=== PATIENT | female | born 1960 | race Caucasian/White ===

== ENCOUNTER 2016-12-28 14:34 | Emergency (ER) | payer OTHER ==
[~2016-12-28] VITALS: Ht 185.4 cm; Wt 72.5 kg
[~2016-12-28 14:34] MED LIST: DULO60CA44 PO
[2016-12-28 14:44] VITALS: Ht 185.4 cm; Wt 72.5 kg
--- NOTE | 2016-12-28 15:34 | DIAGNOSTIC IMAGING REPORT ---
R WRIST W/NAVICULAR MIN 3 VIEWS CLINICAL HISTORY: Right distal ulna pain status post trauma COMPARISON: None. DISCUSSION: No acute fractures are visualized. There are no erosive or destructive changes. There are minor degenerative changes at the level of the first carpometacarpal joint. IMPRESSION: Minor degenerative change. No fractures. No evidence of erosive disease. Electronically signed by: Amandeep Pereira M.D. 12/28/2016 3:32 PM Dictated Date/Time: 12/28/2016 3:31 PM
--- NOTE | 2016-12-28 15:47 | EMERGENCY ROOM VISIT NOTE ---
History First contact with patient: 15:02 Chief Complaint: WRIST PAIN Stated Complaint: RT WRIST PAIN History of Present Illness The patient is a 56 year old female who presents to the Emergency Room via private vehicle with complaints of "right wrist pain". The patient states that she was working on her go-cart yesterday, when she was operating a wrench that broke free, causing her wrist to bend with force. She states that she has had pain in the right wrist since then, but has been wearing a Velcro wrist lacer that she had from previous injury. She notes that she has broken and twisted the wrist in the past. She points to the distal ulnar region of the right wrist as a location of pain that she currently rates as a 5/10. She states she is broken bones before, and this feels similar, but not as bad. She is right- handed. Review of Systems A complete 6-point Review of Systems was discussed with the patient, with pertinent positives and negatives listed in the History of Present Illness. All remaining Review of Systems questions can be considered negative unless otherwise specified. Past Medical/Surgical History Medical Problems: (1) ANXIETY STATE NOS (2) ASTHMA W/O STATUS ASTH, ACT EXACERBATION OR UNSPEC (3) ATRIAL FIBRILLATION (4) CHRONIC PAIN SYNDROME (5) GENERALIZED PAIN (6) IDIO PERIPH NEURPTHY NOS (7) ITP (idiopathic thrombocytopenic purpura) (8) OPIOID DEPENDENCE-UNSPEC (9) PERSONAL HX OF TIA,& CEREBRAL INFARCTION W/OUT RES DEFICITS (10) THROMBOCYTOPENIA NOS Family History No pertinent family history Social History Smoking Status: Current Every Day Smoker Alcohol Use: none Drug Use: none Marital Status: single Housing Status: lives alone Occupation Status: unemployed Current/Historical Medications Scheduled Duloxetine Hcl (Cymbalta), 60 MG PO DAILY Estrogens, Conjugated (Premarin), 0.625 MG PO BID Gabapentin (Neurontin), 300 MG PO BID Morphine Sulfate (Morphine Sulfate Er), 60 MG PO Q8 Scheduled PRN Cyclobenzaprine Hcl (Flexeril), 10 MG PO BID PRN for Muscle Spasm Hydrocodone/Acetaminophen 10MG/325MG ([place] 10MG/325MG), 1 TABLET PO QID PRN for Pain Lorazepam (Ativan), 1 MG PO Q12 PRN for Shakes Physical Exam Vital Signs Date Time Temp Pulse Resp B/P (MAP) Pulse Ox O2 Delivery O2 Flow Rate FiO2 9/21/17 15:54 36.9 92 16 122/69 98 12/28/16 14:44 36.9 92 16 122/69 98 Room Air Physical Exam VITAL SIGNS - Vital signs and nursing notes were reviewed. Stable. GENERAL -56-year-old female appearing her stated age who is in no acute distress. Communicates well with provider and answers questions appropriately. SKIN - Without rashes. Slight erythema overlying the distal right ulnar region. No breaks in the integument. There is some edema in this region. EXTREMITIES - No clubbing or peripheral cyanosis. No pretibial edema present. She is neurovascularly intact in the right upper extremity. Near full range of motion of this region. Tenderness overlying the medial aspect of the right wrist. +5/5 strength noted in UE/LE bilaterally. Medical Decision & Procedures ER Provider Diagnostic Interpretation: R WRIST W/NAVICULAR MIN 3 VIEWS CLINICAL HISTORY: Right distal ulna pain status post trauma COMPARISON: None. DISCUSSION: No acute fractures are visualized. There are no erosive or destructive changes. There are minor degenerative changes at the level of the first carpometacarpal joint. IMPRESSION: Minor degenerative change. No fractures. No evidence of erosive disease. Electronically signed by: Amandeep Pereira M.D. 12/28/2016 3:32 PM Dictated Date/Time: 12/28/2016 3:31 PM Medical Decision Patient was seen and evaluated as above. She presents to us today status post injury of the right wrist. She is already splinted in a nice wrist lacer. Radiographs of the right wrist were obtained. Results as above. No acute fracture. I suspect sprain. She was offered another splint, but the one she is wearing is very sufficient. She declined respectfully and other splint. She is to follow up orthopedics regarding her injury. She was educated upon management, educated upon worrisome symptoms which to return, had questions answered prior to discharge, and was discharged home in good condition. In the evaluation and treatment of this patient, the following differential diagnoses were considered: Wrist Sprain, Wrist Fracture, Wrist Dislocation, Scapholunate Dissociation, Carpal Fracture, Metacarpal Fracture, Radial Styloid Process Fracture, Ulnar Styloid Process Fracture, or Carpal Tunnel Syndrome. Impression Primary Impression: Wrist pain, right Departure Information Dispostion Home / Self-Care Condition GOOD Referrals Pro,Lisa HensonD. (PCP) Chavo Cordova M.D. Patient Instructions My [facility] Additional Instructions You have been treated in the Emergency Department for Wrist Pain. For pain control, you can use the following [id number] medicines if not allergic or restricted based on medications already taking: - Regular strength (325mg/tab) Tylenol (acetaminophen) 2 tabs every 4-6 hours as needed. Do not exceed 12 tablets in a 24 hour period. Avoid taking more than 3 grams (3000 mg) of Tylenol per day. This includes any other sources of acetaminophen you may take on a regular basis. If this is a recent injury (<24 hrs), ice can be applied to the area of pain for the first 3 days to help decrease pain and inflammation. You have been provided the number for an Orthopaedic Surgeon. You should call this number as soon as possible to establish a follow-up visit from today's Emergency Department visit. Keep the brace/splint in place until evaluated by Orthopedics. Return to the Emergency Department if your current symptoms worsen despite treatment course outlined above, or if you develop any of the following symptoms : intractable pain despite aforementioned treatment course or new onset of numbness or tingling of the fingers.
[2016-12-28 15:54] VITALS: BP 122/69; PULSE 92; TEMP 36.9; O2SAT 98
[2016-12-28] MEDS ORDERED: CYCL10TA6 PO (18:46)
[2016-12-28] MEDS ORDERED: MORP1TAB13 PO (18:46)
[2016-12-28] MEDS ORDERED: HYDR-4079 PO (20:02)
[2016-12-28] MEDS ORDERED: PRM625 PO (20:02)
[2016-12-28] MEDS ORDERED: GABA-113 PO (20:02)
[2016-12-28] MEDS ORDERED: ATV/1 PO (20:55)
== END 2016-12-28 15:55 | disposition home or self-care (01) ==
LOC: C.EDB 14:38 → C.EDD 15:55
DX: S69.91XA Unspecified injury of right wrist, hand and finger(s), initial encounter (principal); Y93.89 Activity, other specified; X50.0XXA Overexertion from strenuous movement or load, initial encounter; F41.9 Anxiety disorder, unspecified; J45.909 Unspecified asthma, uncomplicated; I48.91 Unspecified atrial fibrillation; G89.4 Chronic pain syndrome; G60.9 Hereditary and idiopathic neuropathy, unspecified; D69.3 Immune thrombocytopenic purpura; Z86.73 Personal history of transient ischemic attack (TIA), and cerebral infarction without residual deficits; F17.210 Nicotine dependence, cigarettes, uncomplicated; Z79.899 Other long term (current) drug therapy

== ENCOUNTER → 2017-03-05 | Outpatient (CLI) | payer OTHER ==
[~2017-03-05] MED LIST changes: +ATV/1 PO; +CYCL10TA6 PO; +GABA-113 PO; +HYDR-4079 PO; +MORP1TAB13 PO; +PRM625 PO
--- NOTE | 2017-03-05 09:50 | DIAGNOSTIC IMAGING REPORT ---
ABDOMEN COMPLETE (US) CLINICAL HISTORY: 56 years-old Female with IMMUNE THROMBOCYTOPENIA. Prior cholecystectomy COMPARISON: CT abdomen and pelvis 03/12/2014 TECHNIQUE: Multiple real time sonographic images of the abdomen were obtained assessing bustillos-scale appearance. FINDINGS: PANCREAS: The pancreas is partially obscured by bowel gas. The visualized portions of the pancreas are normal without focal lesion or pancreatic duct dilatation.Pancreatic duct measures in the upper limits of normal at 3 mm, nonspecific. LIVER: The liver demonstrates mildly increased echogenicity suggesting fatty infiltration. There is no intrahepatic bile duct dilation, focal lesion, or contour nodularity. There is no ascites. GALLBLADDER: The gallbladder is surgically absent. Negative sonographic Rasmussen's sign. The common bile duct measures 0.4 cm. RIGHT KIDNEY: The right kidney measures 10.8 x 3.9 x 4.9 cm. The parenchymal echotexture and cortical thickness are normal. No nephrolithiasis or hydronephrosis. LEFT KIDNEY: The left kidney measures 11.0 x 4.8 x 5.4 cm. The parenchymal echotexture and cortical thickness are normal. No nephrolithiasis or hydronephrosis. SPLEEN: The spleen measures 12.4 cm and is normal in echotexture. No focal lesions are identified. VASCULATURE: The visualized aorta and inferior vena cava are sub-visualized although appear normal as seen. IMPRESSION: 1. Prior cholecystectomy. No biliary ductal dilation. 2. Remainder of the study is within normal limits. No splenomegaly. The above report was generated using voice recognition software. It may contain grammatical, syntax or spelling errors. Electronically signed by: Ambrose Whitehead M.D. 03/05/2017 9:49 AM Dictated Date/Time: 03/05/2017 9:45 AM
== END | disposition home or self-care (01) ==
LOC: C.ULTR 09:04
PROVIDERS: ATTEND Nurse Practitioner Family
DX: D69.3 Immune thrombocytopenic purpura (principal)

== ENCOUNTER → 2017-11-08 | Outpatient (CLI) | payer OTHER ==
[~2017-11-08] MED LIST changes: +AZIT-57 PO; +CHOL2000 PO; +ERGO500037 PO; +FOLI800T PO; +NUTR-25 PO; +TIOT1SPR INH
== END | disposition home or self-care (01) ==
LOC: C.LAB1850 14:31
PROVIDERS: ATTEND Physician Assistant
DX: G89.4 Chronic pain syndrome (principal)

== ENCOUNTER 2022-09-05 18:40 | Inpatient (IN) ==
--- NOTE | 2022-09-05 18:59 | ED Triage Note ---
Date of Service September 05, 2022 History of Present Illness This patient was briefly evaluated while in triage. An abbreviated physical exam was performed. This patient is a 61-year-old transgender female who presents to the ED for evaluation of shortness of breath, chest pain, fatigue, body aches, back pain a nd low blood platelets due to multiple melanoma and ITP (last treatment 3 weeks ago). Goes to Dr. Gutierrez through [facility] for treatment. Has had progressively worsening symptoms over the past couple of days. Physical Exam GENERAL: Non-toxic and in no acute distress. HEENT: Pupils equal. No obvious scleral icterus. SKIN: Multiple areas of ecchymosis and petechiae present. HEART: Regular rate and rhythm. LUNGS: Clear to auscultation. No accessory muscle use. MUSCULOSKELETAL: Tender to palpation over the lumbar spine mainly over L2-L3 as well as bilateral paraspinal muscle tenderness. Full range of motion of the bilateral lower extremities. Normal sensation to light and sharp touch of the bilateral lower extremities. NEURO: Alert and oriented. No obvious neurological deficits on quick neuro exam. Initial orders for labs and / or imaging were placed and patient was placed in the waiting area until a bed is available. Please see further documentation for the full ED course.
[2022-09-05 20:42] LABS: Alanine Aminotransferase 21 U/L (7-52); Albumin Globulin Ratio 0.7 (0.9-2); Albumin Level 3.5 gm/dl (3.4-5.0); Alkaline Phosphatase 80 U/L (34-104); Anion Gap 7 (3-11); Aspartate Aminotransferase 17 U/L (13-39); Bilirubin,Total 0.8 mg/dl (0.2-1.0); Blood Urea Nitrogen 9 mg/dl (6-23); Calcium 8.5 mg/dl (8.6-10.3); Carbon Dioxide 27 mmol/L (21-32); Chloride 103 mmol/L (98-107); Est GFR (African American) 110.4 ml/min; Est GFR (Non-African American) 95.3 ml/min; Globulin 5.1 gm/dl (2.5-4.0); Glucose 108 mg/dl (70-99(Fasting)); Hematocrit (blood only) 33.2 % (37.0-47.0); Hemoglobin 11.2 g/dl (12.0-16.0); Lipase 13 U/L (11-82); Mean Corpuscular Hemoglobin 32.8 pg (25.0-34.0); Mean Corpuscular Hgb Conc 33.7 g/dL (32.0-36.0); Mean Corpuscular Volume 97.4 fL (80.0-100.0); Platelet Count 4 K/uL (130-400); Potassium 3.7 mmol/L (3.5-5.1); RDW Coefficient of Variation 13.8 % (11.5-14.5); RDW Standard Deviation 49.4 fL (36.4-46.3); Red Blood Count 3.41 M/uL (4.20-5.40); Sodium 137 mmol/L (136-145); Total Protein 8.6 gm/dl (6.0-8.3); White Blood Count 5.37 K/ul (4.8-10.8)
[2022-09-05 20:48] LABS: Troponin I High Sensitivity 2.5 pg/ml (0-14)
[2022-09-05 20:52] LABS: Partial Thromboplastin Ratio 0.7; Partial Thromboplastin Time 20.9 Seconds (21.0-31.0); Prothrombin Time 10.5 Seconds (9.0-12.0)
[2022-09-05 20:57] LABS: Basophils # (auto) 0.02 K/uL (0-0.2); Basophils % (auto) 0.4 %; Eosinophils # (auto) 0.17 K/uL (0-0.50); Eosinophils % (auto) 3.2 %; Immature Granulocytes # (auto) 0.01 K/uL (0.01-0.20); Immature Granulocytes % (auto) 0.2 %; Lymphocytes # (auto) 1.54 K/uL (1.2-3.4); Lymphocytes % (auto) 28.7 %; Monocytes # (auto) 0.34 K/uL (0.11-0.59); Monocytes % (auto) 6.3 %; Neutrophils # (auto) 3.29 K/uL (1.40-6.50); Neutrophils % (auto) 61.2 %
[2022-09-05 21:14] LABS: Influenza A virus by PCR Negative (Neg); Influenza B virus by PCR Negative (Neg); RSV by PCR Negative (Neg); SARS CoV2 RNA(COVID-19) Ceph NEGATIVE (Negative)
[2022-09-05] MEDS ORDERED: HYDROmorphone INJ 0.5 MG/0.5 ML SYR IV STA (22:46)
[2022-09-05] MEDS ORDERED: ONDANSETRON INJ 2 MG/ML 2 ML VIAL IV STA (22:46)
[2022-09-05] MEDS ORDERED: SODIUM CHLORIDE 0.9% 1000ML 1,000 ML IV SCH (23:00)
--- NOTE | 2022-09-05 23:32 | CT Scan Report ---
Exam(s): CT L SPINE EXAM: CT Lumbar Spine Without Intravenous Contrast CLINICAL HISTORY: Reason for exam: Back pain. TECHNIQUE: Axial computed tomography images of the lumbar spine without intravenous contrast. Automated exposure control was utilized for the study. A dose lowering technique was utilized adhering to the principles of ALARA. COMPARISON: CT abdomen and pelvis 05/13/2021. PET/CT 09/04/2018. FINDINGS: Vertebrae: Chronic bilateral pars defects of L5 with minimal grade 1 spondylolisthesis of L5 on S1. There is associated severe right and moderate left foraminal narrowing. No acute fracture. Discs/spinal canal/neural foramina: Mild degenerative disc disease and facet arthrosis seen in the lumbar spine. No high-grade spinal canal stenosis. Right central/subarticular disc protrusion at L3-L4. Soft tissues: Unremarkable. Vasculature: Atherosclerotic calcification in the abdominal aorta and branches. IMPRESSION: 1. No acute fracture or traumatic malalignment of the lumbar spine. 2. Chronic pars defects of L5 with grade 1 spondylolisthesis of L5 on S1 and associated degenerative change resulting in severe right and moderate left foraminal narrowing at L5-S1. 3. Right central/subarticular disc protrusion at L3-L4. Recommend correlation for symptoms. Consider evaluation with MRI. 4. Otherwise, mild degenerative change in the lumbar spine. Electronically signed by: Yehuda March MD 09/05/22 23:31 PM
[2022-09-06 00:05] LABS: Magnesium 1.9 mg/dl (1.7-2.4)
[2022-09-06] MEDS ORDERED: MAGNESIUM SULFATE / D5W 1 GM/100 ML BAG IV STA (00:27)
[2022-09-06 00:59] LABS: Lyme Ab IgG w/WB Rflx Negative (Negative); Lyme Ab IgM w/WB Rflx Negative (Negative)
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
[2022-09-06] MEDS ORDERED: KETOROLAC TROMETHAMINE 15 MG/ML VIAL IV STA (01:28)
[2022-09-06] MEDS ORDERED: LORazepam 0.5 MG TAB PO PRN (01:33)
[2022-09-06] MEDS ORDERED: PROMETHAZINE HCL 6.25 MG in SODIUM CHLORIDE 0.9% 50 ML IV PRN (01:33)
[2022-09-06] MEDS ORDERED: ACETAMINOPHEN 325 MG TAB PO PRN (01:34)
[2022-09-06] MEDS ORDERED: NICOTINE 21 MG/24 HR TDSY TD STA (01:35)
[2022-09-06] MEDS ORDERED: BETAMETHASONE DIP AUG (DIPROLENE) 0.05% CR 15 GM TUBE EXT STA (01:43)
[2022-09-06] MEDS ORDERED: NEOMYCIN/POLYMYX/HYDROCORT OT SUSP 10 ML BTL OTB STA (01:43)
[2022-09-06] MEDS ORDERED: LIDOCAINE 5% 1 PATCH TD STA (01:45)
[2022-09-06] MEDS ORDERED: OPTIRAY 320 500ml IV ONE (03:24)
[2022-09-06] MEDS ORDERED: NICOTINE 21 MG/24 HR TDSY TD ONE (03:47)
--- NOTE | 2022-09-06 04:51 | History & Physical Report ---
Date of Service September 06, 2022 Assessment & Plan (1) SOB (shortness of breath): Plan: hx COPD, ongoing tobacco abuse rule out pulmonary hypertension Leg swelling rule out DVT hx chronic ITP, on outpatient Romiplostim chronic anemia, hemoglobin at baseline MGUS/smoldering multiple myeloma as per records, patient follows with [facility] contract negotiation specialist fibromyalgia mood disorder, patient not taking home medications Worsening chronic back pain with radiculopathy symptoms, patient not compliant with neuropathy medications because they do not work according to her transgender identity (male to female) status post surgery on hormonal Rx Otitis externa bilateral Possible psoriasis Increased left eye discharge (rheum) rule out allergic etiology Possible functional disability ongoing tobacco abuse Medical telemetry TTE LE venous Dopplers MRI lumbosacral spine, orthopedic spine consult worsening lumbar radiculopathy Topical steroid antibiotic Rx course for bilateral otitis externa Steroid cream for possible psoriasis Allergic eyedrop trial for increased left eye discharge PT OT eval after patient seen by orthopedic spine Nicotine patch DVT prophylaxis. SCDs if no blood clot on LE Dopplers Re: RE thrombocytopenia Full code Text document was generated using [employer] voice recognition software. It may contain grammatical or spelling errors. Kindly contact undersigned for clarification of any documentation item in question. History of Present Illness Chief Complaint: Worsening shortness of breath, low back pain, fatigue, leg swelling Primary Care Provider: Joyce Romo DO History obtained from patient and records. 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 Last confinement September 2017 for COPD exacerbation. Patient noted worsening left low back pain with leg radiation and shortness of breath mostly on exertion the last 2 weeks. No unusual cough symptoms. Chest pain from shortness of breath as per patient. No recent trauma, no fever, no chills. No incontinence. Patient constipated. Left leg feels numb. Achy headache symptoms. Left eye with 'gunk' as per patient. Both ears itching and ringing. Itchy lesions on the right arm and palms. Above problems worsening over the last few months. Belly discomfort from being bloated.. Legs more swollen than usual. Inability to shower at home from illness. Patient unable to get to [facility] contract negotiation specialist office for Romiplostim infusion and other specialists due to illness and lack of transportation. Patient called contract negotiation specialist who recommended ER evaluation. At the ER, 2 units of pheresed platelets transfused. 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, currently unemployed, lives alone Allergies Allergy/AdvReac Type Severity Reaction Status Date / Time ciprofloxacin Allergy Mild ITCHING Verified 09/05/22 23:06 amoxicillin [From Augmentin] Allergy Unknown Unknown Verified 05/13/21 11:05 clavulanic acid Allergy Unknown Unknown Verified 05/13/21 11:05 [From Augmentin] gemfibrozil Allergy Unknown Unknown Verified 05/13/21 11:05 prednisone Allergy Unknown Unknown Verified 05/13/21 11:05 Home Medications Medication Instructions Recorded Confirmed Type conjugated estrogens 0.625 mg 0.625 mg PO BID 08/14/19 09/05/22 History tablet (Premarin) cyclobenzaprine 10 mg tablet 10 mg PO AMHS 08/14/19 09/05/22 History duloxetine 60 mg capsule,delayed 60 mg PO QAM 08/14/19 09/05/22 History release ferrous sulfate 325 mg (65 mg 325 mg PO Q2D 08/14/19 09/05/22 History iron) tablet gabapentin 400 mg capsule 800 mg PO AMHS 08/14/19 09/05/22 History Oxygen Home #1 ea 02/08/21 09/05/22 Rx Portable Oxygen #1 ea 02/09/21 09/05/22 Rx acetaminophen 500 mg tablet 500 mg PO Q6H PRN Pain 05/13/21 09/05/22 History folic acid 1 mg tablet 1 mg PO QAM 09/05/22 09/05/22 History Past Med/Surg History Medical History (Updated 09/06/22 @ 08:26 by Jamal Mejia MD) Chronic obstructive pulmonary disease, unspecified Dental disorder Ecchymosis Essential hypertriglyceridemia Fibromyalgia History of fibromyalgia ITP (idiopathic thrombocytopenic purpura) Need for hepatitis C screening test Pain syndrome, chronic Peripheral neuropathy Person who has undergone gender reassignment surgery Sepsis (03/12/14) Social History Smoking Status: Current every day smoker Tobacco Type: Cigarettes Preferred Language: Citizen Of [place] Feels Safe at Home: Yes Review of Systems Review of Systems: As per HPI, all other systems reviewed and negative Physical Exam Physical Exam: GENERAL: uncomfortable, irate, no respiratory distress SKIN: Pallor, petechiae noted over extremities, scaly plaques noted on both palms and right forearm, warm HEENT: Sparse hair, pale palpebral conjunctivae, no ptosis, moist buccal mucosa; erythematous EAC bilateral, intact TM bilaterally NECK : Supple, no tenderness CHEST : Decreased breath sounds, no tenderness HEART : RRR, no obvious murmurs ABDOMEN: Some distention, nontender BACK : Low back tenderness, negative straight leg raise test EXTREMITIES : Minimal LE swelling, no LE tenderness, no other conspicuous deform ities noted NEUROLOGIC : Coherent, no facial asymmetry, RUE rest tremors, gait and stance not assessed Results & Data Results & Data Vital Signs (Past 12 Hours) Vital Signs Temp Pulse Pulse Pulse Resp BP BP 09/06/22 04:11 36.5 C 88 18 112/90 09/06/22 03:56 36.8 C 95 H 20 113/96 09/06/22 03:37 37.0 C 84 22 109/77 09/06/22 02:55 89 20 110/69 09/06/22 02:19 36.8 C 85 23 90/73 L 09/06/22 01:32 92 H 09/06/22 01:21 37.1 C 89 19 121/88 09/06/22 00:51 36.8 C 93 H 23 123/88 09/06/22 00:43 09/06/22 00:36 36.8 C 94 H 18 109/80 09/06/22 00:10 36.7 C 84 17 91/78 L 09/05/22 23:31 92 H 20 108/77 09/05/22 23:09 129/79 09/05/22 23:09 94 H 17 09/05/22 23:00 90 20 09/05/22 22:30 95 H 20 09/05/22 22:50 09/05/22 22:17 09/05/22 21:30 90 19 09/05/22 21:28 86 16 09/05/22 22:21 94 H 18 106/72 09/05/22 21:33 87 09/05/22 21:18 90 16 09/05/22 21:18 37.1 C 90 16 106/72 09/05/22 18:56 36.4 C L 95 H 18 115/76 Pulse Ox O2 Del Method O2 Flow Rate 09/06/22 04:11 100 2 09/06/22 03:56 95 2 09/06/22 03:37 98 2 09/06/22 02:55 94 Nasal Cannula 2 09/06/22 02:19 95 Nasal Cannula 2 09/06/22 01:32 09/06/22 01:21 96 2 09/06/22 00:51 97 2 09/06/22 00:43 97 Nasal Cannula 2 09/06/22 00:36 98 2 09/06/22 00:10 94 2 09/05/22 23:31 95 Nasal Cannula 2 09/05/22 23:09 09/05/22 23:09 98 09/05/22 23:00 98 09/05/22 22:30 09/05/22 22:50 100 Nasal Cannula 2 09/05/22 22:17 98 09/05/22 21:30 99 09/05/22 21:28 99 09/05/22 22:21 100 Nasal Cannula 2 09/05/22 21:33 09/05/22 21:18 98 Nasal Cannula 2 09/05/22 21:18 100 Room Air 2 09/05/22 18:56 99 Room Air Laboratory Results Laboratory Results WBC 5.37 K/ul (4.8-10.8) 09/05/22 19:57 RBC 3.41 M/uL (4.20-5.40) L 09/05/22 19:57 Hgb 11.2 g/dl (12.0-16.0) L 09/05/22 19:57 Hct 33.2 % (37.0-47.0) L 09/05/22 19:57 MCV 97.4 fL (80.0-100.0) 09/05/22 19:57 MCH 32.8 pg (25.0-34.0) 09/05/22 19:57 MCHC 33.7 g/dL (32.0-36.0) 09/05/22 19:57 RDW Std Deviation 49.4 fL (36.4-46.3) H 09/05/22 19:57 RDW Coeff of Mela 13.8 % (11.5-14.5) 09/05/22 19:57 Plt Count 4 K/uL (130-400) L* 09/05/22 19:57 Immature Gran % (Auto) 0.2 % 09/05/22 19:57 Neut % (Auto) 61.2 % 09/05/22 19:57 Lymph % (Auto) 28.7 % 09/05/22 19:57 Payne % (Auto) 6.3 % 09/05/22 19:57 Eos % (Auto) 3.2 % 09/05/22 19:57 Baso % (Auto) 0.4 % 09/05/22 19:57 Neut # (Auto) 3.29 K/uL (1.40-6.50) 09/05/22 19:57 Lymph # (Auto) 1.54 K/uL (1.2-3.4) 09/05/22 19:57 Payne # (Auto) 0.34 K/uL (0.11-0.59) 09/05/22 19:57 Eos # (Auto) 0.17 K/uL (0-0.50) 09/05/22 19:57 Baso # (Auto) 0.02 K/uL (0-0.2) 09/05/22 19:57 Immature Gran # (Auto) 0.01 K/uL (0.01-0.20) 09/05/22 19:57 PT 10.5 Seconds (9.0-12.0) 09/05/22 19:57 INR 1.0 (0.9-1.1) 09/05/22 19:57 APTT 20.9 Seconds (21.0-31.0) L 09/05/22 19:57 PTT Ratio 0.7 09/05/22 19:57 D-Dimer Cancelled 09/06/22 00:12 Sodium 137 mmol/L (136-145) 09/05/22 19:57 Potassium 3.7 mmol/L (3.5-5.1) 09/05/22 19:57 Chloride 103 mmol/L (98-107) 09/05/22 19:57 Carbon Dioxide 27 mmol/L (21-32) 09/05/22 19:57 Anion Gap 7 (3-11) 09/05/22 19:57 BUN 9 mg/dl (6-23) 09/05/22 19:57 Creatinine 0.69 mg/dl (0.6-1.2) 09/05/22 19:57 Est Cr Clr Drug Dosing Not Reportable 09/05/22 19:57 Est GFR ( Amer) 110.4 ml/min 09/05/22 19:57 Est GFR (Non-Af Amer) 95.3 ml/min 09/05/22 19:57 BUN/Creatinine Ratio 13.0 (10-20) 09/05/22 19:57 Glucose 108 mg/dl (70-99(Fasting)) H 09/05/22 19:57 Calcium 8.5 mg/dl (8.6-10.3) L 09/05/22 19:57 Magnesium 1.9 mg/dl (1.7-2.4) 09/05/22 19:57 Total Bilirubin 0.8 mg/dl (0.2-1.0) 09/05/22 19:57 AST 17 U/L (13-39) 09/05/22 19:57 ALT 21 U/L (7-52) 09/05/22 19:57 Alkaline Phosphatase 80 U/L (34-104) 09/05/22 19:57 Troponin I High Sens 2.5 pg/ml (0-14) 09/05/22 19:57 Total Protein 8.6 gm/dl (6.0-8.3) H 09/05/22 19:57 Albumin 3.5 gm/dl (3.4-5.0) 09/05/22 19:57 Globulin 5.1 gm/dl (2.5-4.0) H 09/05/22 19:57 Albumin/Globulin Ratio 0.7 (0.9-2) L 09/05/22 19:57 Lipase 13 U/L (11-82) 09/05/22 19:57 TSH 2.523 uIu/ml (0.300-4.500) 09/05/22 20:03 Lyme Disease IgG Ab Negative (Negative) 09/05/22 20:03 Lyme Disease IgM Ab Negative (Negative) 09/05/22 20:03 SARS-CoV-2 (PCR) NEGATIVE (Negative) 09/05/22 19:44 Influenza Type A (PCR) Negative (Neg) 09/05/22 19:44 Influenza Type B (PCR) Negative (Neg) 09/05/22 19:44 RSV (RT-PCR) Negative (Neg) 09/05/22 19:44 Blood Type A Positive 09/05/22 19:57 Blood Type Recheck A Positive 09/05/22 23:45 Antibody Screen NEGATIVE 09/05/22 19:[address] 09/05/22 19:00 Exam(s): CT L SPINE EXAM: CT Lumbar Spine Without Intravenous Contrast CLINICAL HISTORY: Reason for exam: Back pain. TECHNIQUE: Axial computed tomography images of the lumbar spine without intravenous contrast. Automated exposure control was utilized for the study. A dose lowering technique was utilized adhering to the principles of ALARA. COMPARISON: CT abdomen and pelvis 05/13/2021. PET/CT 09/04/2018. FINDINGS: Vertebrae: Chronic bilateral pars defects of L5 with minimal grade 1 spondylolisthesis of L5 on S1. There is associated severe right and moderate left foraminal narrowing. No acute fracture. Discs/spinal canal/neural foramina: Mild degenerative disc disease and facet arthrosis seen in the lumbar spine. No high-grade spinal canal stenosis. Right central/subarticular disc protrusion at L3-L4. Soft tissues: Unremarkable. Vasculature: Atherosclerotic calcification in the abdominal aorta and branches. IMPRESSION: 1. No acute fracture or traumatic malalignment of the lumbar spine. 2. Chronic pars defects of L5 with grade 1 spondylolisthesis of L5 on S1 and associated degenerative change resulting in severe right and moderate left foraminal narrowing at L5-S1. 3. Right central/subarticular disc protrusion at L3-L4. Recommend correlation for symptoms. Consider evaluation with MRI. 4. Otherwise, mild degenerative change in the lumbar spine. Electronically signed by: Yehuda March MD 09/05/22 23:31 PM Abdomen/Pelvis CT 09/06/22 01:25 Exam(s): CT ABDOMEN + PELVIS With Contrast IV Amt: 113 ML OPTIRAY 320 EXAM: CT Abdomen and Pelvis With Intravenous Contrast CLINICAL HISTORY: Abdominal discomfort. TECHNIQUE: Axial computed tomography images of the abdomen and pelvis with intravenous contrast. CTDI is 22.57 mGy and DLP is 1996.21 mGy-cm. Automated exposure control was utilized for the study. A dose lowering technique was utilized adhering to the principles of ALARA. CONTRAST: Patient received 113 ML OPTIRAY 320 of IV contrast COMPARISON: No relevant prior studies available. FINDINGS: Lung bases: Emphysema. ABDOMEN: Liver: Unremarkable. No mass. Gallbladder and bile ducts: Cholecystectomy. No ductal dilation. Pancreas: Unremarkable. No mass. No ductal dilation. Spleen: Unremarkable. No splenomegaly. Adrenals: Unremarkable. No mass. Kidneys and ureters: Unremarkable. No solid mass. No hydronephrosis. Stomach and bowel: Unremarkable. No obstruction. No mucosal thickening. PELVIS: Appendix: No findings to suggest acute appendicitis. Bladder: Unremarkable. No mass. Reproductive: Unremarkable as visualized. ABDOMEN and PELVIS: Intraperitoneal space: Unremarkable. No free air. No significant fluid collection. Bones/joints: Degenerative changes of the spine. No acute fracture. No dislocation. Soft tissues: Unremarkable. Vasculature: Mild atherosclerosis. No abdominal aortic aneurysm. Lymph nodes: Unremarkable. No enlarged lymph nodes. IMPRESSION: 1. No acute finding. 2. Emphysema. Electronically signed by: Daja Gray MD 09/06/22 04:54 AM Chest CTA 09/06/22 01:25 Exam(s): CTA CHEST IV Amt: 113 ML OPTIRAY 320 EXAM: CT Angiography Chest With Intravenous Contrast CLINICAL HISTORY: Chest pain. TECHNIQUE: Axial computed tomographic angiography images of the chest with intravenous contrast. CTDI is 22.57 mGy and DLP is 1996.21 mGy-cm. Automated exposure control was utilized for the study. A dose lowering technique was utilized adhering to the principles of ALARA. MIP reconstructed images were created and reviewed. COMPARISON: No relevant prior studies available. FINDINGS: Pulmonary arteries: Unremarkable. No pulmonary embolus. Aorta: No acute findings. No thoracic aortic aneurysm. Lungs: Marked emphysema. No mass. Pleural space: Unremarkable. No significant effusion. No pneumothorax. Heart: Unremarkable. No cardiomegaly. No significant pericardial effusion. No evidence of RV dysfunction. Bones/joints: There are degenerative changes of the spine. No fracture. No dislocation. Soft tissues: Bilateral breast prosthesis are present. Lymph nodes: Unremarkable. No enlarged lymph nodes. IMPRESSION: 1. No pulmonary embolus. 2. Marked emphysema. Electronically signed by: Daja Gray MD 09/06/22 04:[address] 09/06/22 01:25 Exam(s): CT HEAD Without Contrast EXAM: CT Head Without Intravenous Contrast CLINICAL HISTORY: Headache. TECHNIQUE: Axial computed tomography images of the head/brain without intravenous contrast. CTDI is 22.57 mGy and DLP is 1996.21 mGy-cm. Automated exposure control was utilized for the study. A dose lowering technique was utilized adhering to the principles of ALARA. COMPARISON: CT head 03/15/2022 FINDINGS: Brain: No intracranial hemorrhage, mass-effect or midline shift. No abnormal extra axial fluid. No evidence of acute infarct. Mild periventricular white matter hypodensities are most consistent with chronic microangiopathy. Ventricles: Unremarkable. No ventriculomegaly. Bones/joints: Unremarkable. No acute fracture. Soft tissues: Unremarkable. Sinuses: Unremarkable as visualized. No acute sinusitis. Mastoid air cells: Unremarkable as visualized. No mastoid effusion. IMPRESSION: No acute intracranial finding. Electronically signed by: Daja Gray MD 09/06/22 05:06 AM Diagnostic Findings EKG as per my interpretation : Rate 90, NSR, RAD, T wave abnormalities septal leads, PVCs
--- NOTE | 2022-09-06 04:55 | CT Scan Report ---
Exam(s): CT ABDOMEN + PELVIS With Contrast IV Amt: 113 ML OPTIRAY 320 EXAM: CT Abdomen and Pelvis With Intravenous Contrast CLINICAL HISTORY: Abdominal discomfort. TECHNIQUE: Axial computed tomography images of the abdomen and pelvis with intravenous contrast. CTDI is 22.57 mGy and DLP is 1996.21 mGy-cm. Automated exposure control was utilized for the study. A dose lowering technique was utilized adhering to the principles of ALARA. CONTRAST: Patient received 113 ML OPTIRAY 320 of IV contrast COMPARISON: No relevant prior studies available. FINDINGS: Lung bases: Emphysema. ABDOMEN: Liver: Unremarkable. No mass. Gallbladder and bile ducts: Cholecystectomy. No ductal dilation. Pancreas: Unremarkable. No mass. No ductal dilation. Spleen: Unremarkable. No splenomegaly. Adrenals: Unremarkable. No mass. Kidneys and ureters: Unremarkable. No solid mass. No hydronephrosis. Stomach and bowel: Unremarkable. No obstruction. No mucosal thickening. PELVIS: Appendix: No findings to suggest acute appendicitis. Bladder: Unremarkable. No mass. Reproductive: Unremarkable as visualized. ABDOMEN and PELVIS: Intraperitoneal space: Unremarkable. No free air. No significant fluid collection. Bones/joints: Degenerative changes of the spine. No acute fracture. No dislocation. Soft tissues: Unremarkable. Vasculature: Mild atherosclerosis. No abdominal aortic aneurysm. Lymph nodes: Unremarkable. No enlarged lymph nodes. IMPRESSION: 1. No acute finding. 2. Emphysema. Electronically signed by: Daja Gray MD 09/06/22 04:54 AM
--- NOTE | 2022-09-06 04:57 | CT Scan Report ---
Exam(s): CTA CHEST IV Amt: 113 ML OPTIRAY 320 EXAM: CT Angiography Chest With Intravenous Contrast CLINICAL HISTORY: Chest pain. TECHNIQUE: Axial computed tomographic angiography images of the chest with intravenous contrast. CTDI is 22.57 mGy and DLP is 1996.21 mGy-cm. Automated exposure control was utilized for the study. A dose lowering technique was utilized adhering to the principles of ALARA. MIP reconstructed images were created and reviewed. COMPARISON: No relevant prior studies available. FINDINGS: Pulmonary arteries: Unremarkable. No pulmonary embolus. Aorta: No acute findings. No thoracic aortic aneurysm. Lungs: Marked emphysema. No mass. Pleural space: Unremarkable. No significant effusion. No pneumothorax. Heart: Unremarkable. No cardiomegaly. No significant pericardial effusion. No evidence of RV dysfunction. Bones/joints: There are degenerative changes of the spine. No fracture. No dislocation. Soft tissues: Bilateral breast prosthesis are present. Lymph nodes: Unremarkable. No enlarged lymph nodes. IMPRESSION: 1. No pulmonary embolus. 2. Marked emphysema. Electronically signed by: Daja Gray MD 09/06/22 04:56 AM
--- NOTE | 2022-09-06 05:07 | CT Scan Report ---
Exam(s): CT HEAD Without Contrast EXAM: CT Head Without Intravenous Contrast CLINICAL HISTORY: Headache. TECHNIQUE: Axial computed tomography images of the head/brain without intravenous contrast. CTDI is 22.57 mGy and DLP is 1996.21 mGy-cm. Automated exposure control was utilized for the study. A dose lowering technique was utilized adhering to the principles of ALARA. COMPARISON: CT head 03/15/2022 FINDINGS: Brain: No intracranial hemorrhage, mass-effect or midline shift. No abnormal extra axial fluid. No evidence of acute infarct. Mild periventricular white matter hypodensities are most consistent with chronic microangiopathy. Ventricles: Unremarkable. No ventriculomegaly. Bones/joints: Unremarkable. No acute fracture. Soft tissues: Unremarkable. Sinuses: Unremarkable as visualized. No acute sinusitis. Mastoid air cells: Unremarkable as visualized. No mastoid effusion. IMPRESSION: No acute intracranial finding. Electronically signed by: Daja Gray MD 09/06/22 05:06 AM
[2022-09-06] MEDS ORDERED: ACETAMINOPHEN 500 MG TAB PO PRN (06:06)
[2022-09-06] MEDS ORDERED: NEOMYCIN/POLYMYX/HYDROCORT OT SUSP 10 ML BTL ONE (06:26)
[2022-09-06] MEDS: NAPHAZOLIN/PHENIRAMIN OPH SOLN 75 DROPS/5 ML BTL OPL SCH ×4 (06:31→21:57)
[2022-09-06 06:57] LABS: Hematocrit (blood only) 29.5 % (37.0-47.0); Mean Corpuscular Hgb Conc 33.9 g/dL (32.0-36.0); Mean Corpuscular Volume 97.4 fL (80.0-100.0); Platelet Count 6 K/uL (130-400); RDW Coefficient of Variation 13.8 % (11.5-14.5); Red Blood Count 3.03 M/uL (4.20-5.40); White Blood Count 4.48 K/ul (4.8-10.8)
[2022-09-06 06:58] LABS: Basophils # (auto) 0.03 K/uL (0-0.2); Basophils % (auto) 0.7 %; Calcium 8.1 mg/dl (8.6-10.3); Eosinophils # (auto) 0.12 K/uL (0-0.50); Eosinophils % (auto) 2.7 %; Lymphocytes # (auto) 1.09 K/uL (1.2-3.4); Lymphocytes % (auto) 24.3 %; Monocytes # (auto) 0.31 K/uL (0.11-0.59); Monocytes % (auto) 6.9 %; Neutrophils # (auto) 2.93 K/uL (1.40-6.50); Neutrophils % (auto) 65.4 %; Platelet Estimate Signific. Decreased (Normal)
[2022-09-06 07:03] LABS: BUN Creatinine Ratio 12.1 (10-20); Creatinine Clr Calc Pharmacy 109.2 ml/min; Est GFR (African American) 112.1 ml/min; Est GFR (Non-African American) 96.7 ml/min
--- NOTE | 2022-09-06 08:03 | XRay Report ---
XR chest 1V portable CLINICAL HISTORY: Chest pain, SOB TECHNIQUE: Single frontal radiograph of the chest was obtained. Comparison: Comparison is made to chest radiograph 03/25/2022 FINDINGS: No lines and tubes are seen. The cardiomediastinal silhouette is normal. The lungs are clear. No evid ence of pleural effusion or pneumothorax. IMPRESSION: No acute chest disease. ACT 112: Negative or not required by law. Electronically signed by: Eugenio Galo M.D. 09/06/2022 8:02 AM
--- NOTE | 2022-09-06 08:16 | Electrocardiogram Report ---
Test Reason : Blood Pressure : / mmHG Vent. Rate : 092 BPM Atrial Rate : 092 BPM P-R Int : 144 ms QRS Dur : 090 ms QT Int : 380 ms P-R-T Axes : 064 088 068 degrees QTc Int : 469 ms Sinus rhythm with occasional Premature ventricular complexes Otherwise normal ECG When compared with ECG of 14-AUG-2019 18:03, Premature ventricular complexes are now Present Confirmed by Chau Cain ([id number]) on 09/06/2022 8:15:52 AM Referred By: REFERRED SELF Confirmed By:Chau Cain
[2022-09-06] MEDS ORDERED: POLYETHYLENE (MIRALAX) 17 GM PACK PO PRN (08:46)
[2022-09-06] MEDS ORDERED: FERROUS SULFATE 325 MG TAB PO SCH (09:00)
--- NOTE | 2022-09-06 09:29 | Magnetic Resonance Report ---
MR lumbar spine wo con CLINICAL HISTORY: worsening back pain TECHNIQUE: Multiplanar sequences through the lumbar spine were obtained, without intravenous contrast . Comparison: Comparison is made to lumbar spine radiograph 09/07/2022 FINDINGS: The alignment is anatomical. L1-L2: No significant abnormality. L2-L3: Broad base posterior disc bulge is seen without significant canal or neuroforaminal stenosis. L3-L4: Right greater than left posterior disc bulge is seen with moderate right neural foraminal sten osis. L4-L5: Broad-based posterior disc bulge is seen. L5-S1: Facet arthropathy results in mild bilateral neuroforaminal stenosis. The spinal ligaments are intact, without evidence of disruption or abnormal signal intensity. The spi nal cord is normal in signal intensity and there is no evidence of cord contusion. There is no eviden ce of an extradural, intradural, extramedullary or intramedullary lesion. Heterogeneity of the lumbar spine is compatible with history of treated multiple myeloma. IMPRESSION: Multilevel degenerative changes are seen with up to moderate right and mild left neuroforaminal steno sis. No significant canal stenosis is seen. Posttreatment changes of multiple myeloma noted. ACT 112: Negative or not required by law. Electronically signed by: Eugenio Galo M.D. 09/06/2022 9:27 AM
--- NOTE | 2022-09-06 09:45 | Ultrasound Report ---
ULTRASOUND BILATERAL LOWER EXTREMITY VENOUS CLINICAL HISTORY: Lower extremity edema. COMPARISON STUDY: No priors TECHNIQUE: Real-time, grayscale, and color Doppler sonography of the deep veins of the right and left lower extremity was performed from the inguinal crease to the calf. Compression and augmentation wer e utilized. FINDINGS: There is no sonographic evidence of deep venous thrombosis identified in the right or left lower extremity. The common femoral, superficial femoral, and popliteal veins are patent and normally compressible bilaterally. The greater saphenous vein and the profunda femoris vein at the junction w ith the common femoral vein are clear in both legs. The visualized calf veins are patent bilaterally. IMPRESSION: There is no sonographic evidence of deep venous thrombosis identified in the right or lef t lower extremity. ACT 112: Negative or not required by law. Electronically signed by: Nolan Polo M.D. 09/06/2022 9:44 AM
[2022-09-06] MEDS: NICOTINE 21 MG/24 HR TDSY TD SCH (09:54)
[2022-09-06] MEDS: FOLIC ACID 1 MG TAB PO SCH (09:55)
[2022-09-06] MEDS: ESTROGENS, CONJUGATED 0.625 MG TAB PO SCH ×2 (09:55→22:59)
[2022-09-06] MEDS: DOCUSATE SODIUM/SENNA 50/8.6MG TAB PO SCH (09:55)
[2022-09-06] MEDS: NEOMYCIN/POLYMYX/HYDROCORT OT SOLN 10 ML BTL OTB SCH ×2 (14:55→21:57)
[2022-09-06] MEDS ORDERED: IMMUNE GLOBULIN (HUMAN) SOLN IV ONE (17:24)
[2022-09-06] MEDS ORDERED: DEXAMETHASONE SOD INJ 4 MG/ML VIAL IV SCH (17:30)
--- NOTE | 2022-09-06 17:34 | Communication Note ---
Date of Service: September 06, 2022 Patient admitted earlier today (see H&P note for details of admission). Labs and imaging reviewed. Patient has MM/chronic ITP. Platelet on admission was 4, after 2 units of platelet transfusion overnight, platelet this morning was 6. No bleeding noted. Patient was supposed to get Nplate injections every week but has not been able to go for appointment for the past 3 weeks as her car broke down. I communicated with her oncologist Dr. Gutierrez who recommended Nplate injections but we do not have it in her pharmacy. He recommended starting on high-dose Decadron IV 40 Mg daily for 4 days along with PPI and IVIG transfusion at 10 g/kg and see response. Repeat IVIG again tomorrow if no improvement. If still no improvement with steroid and IVIG, will need to request Nplate as nonformulary per pharmacy. States still with back pain with bilateral lower extreme radiculopathy but no cauda equina symptoms-no bowel bladder incontinence, perineal paresthesia. Has chronic neuropathy in lower extremities. Patient was not in acute distress during examination. Awake alert oriented, answering questions appropriately, chest clear, heart sounds normal, abdomen benign, neurologically intact, no ecchymosis or bleeding noted. Orthopedic evaluation pending for his acute on chronic low back pain with radiculopathy. Continue current management for now. Detailed note will be written tomorrow.
[2022-09-06] MEDS ORDERED: dexAMETHasone 40 MG in DEXTROSE 5% 25 ML IV SCH (18:00)
[2022-09-06] MEDS ORDERED: Octagam 10% IVIG 5 gram bottle IV ONE (18:00)
[2022-09-06] MEDS: LIDOCAINE 5% 1 PATCH TD SCH (18:04)
[2022-09-06 18:19] LABS: Hematocrit (blood only) 30.2 % (37.0-47.0); Hemoglobin 10.1 g/dl (12.0-16.0); Mean Corpuscular Hemoglobin 32.8 pg (25.0-34.0); Mean Corpuscular Hgb Conc 33.4 g/dL (32.0-36.0); Mean Corpuscular Volume 98.1 fL (80.0-100.0); Platelet Count 3 K/uL (130-400); Platelet Estimate Signific. Decreased (Normal); RDW Coefficient of Variation 13.7 % (11.5-14.5); RDW Standard Deviation 49.1 fL (36.4-46.3); Red Blood Count 3.08 M/uL (4.20-5.40); White Blood Count 3.38 K/ul (4.8-10.8)
[2022-09-06] MEDS: PANTOprazole 40 MG in SYRINGE 0 ML IV SCH (21:51)
[2022-09-06 21:52] LABS: Appearance Urine Clear (Clear); Bacteria Urine Automated Negative (Negative); Bilirubin Urine Negative (Negative); Blood Urine Trace (Negative); Cast Urine Automated 0 /lpf (0-5); Color Urine Yellow; Glucose Urine UA Negative (Negative); Ketones Urine Negative (Negative); Leukocyte Esterase Urine 1+ (Negative); Nitrite Urine Negative (Negative); Protein Urine Negative (Negative); RBC Urine Automated 0-4 /hpf (0-4); Specific Gravity Urine 1.016 (1.000-1.030); Urobilinogen Urine Negative (Negative)
[2022-09-06] MEDS: oxyCODONE HCL IR 5 MG TAB (IMMEDIATE RELEASE) PO PRN (22:02)
[2022-09-06] MEDS: Octagam 10% IVIG 20 gram bottle IV SCH (22:36)
[2022-09-07] MEDS: Octagam 10% IVIG 20 gram bottle IV SCH ×3 (00:23→03:16)
[2022-09-07 07:49] LABS: BUN Creatinine Ratio 13.6 (10-20); Calcium 8.7 mg/dl (8.6-10.3); Creatinine Clr Calc Pharmacy 109.2 ml/min; Est GFR (African American) 112.1 ml/min; Est GFR (Non-African American) 96.7 ml/min; Hematocrit (blood only) 31.8 % (37.0-47.0); Hemoglobin 10.7 g/dl (12.0-16.0); Mean Corpuscular Hemoglobin 33.3 pg (25.0-34.0); Mean Corpuscular Hgb Conc 33.6 g/dL (32.0-36.0); Mean Corpuscular Volume 99.1 fL (80.0-100.0); Platelet Count 6 K/uL (130-400); Platelet Estimate Signific. Decreased (Normal); Potassium 4.1 mmol/L (3.5-5.1); RDW Coefficient of Variation 13.6 % (11.5-14.5); RDW Standard Deviation 49.2 fL (36.4-46.3); Red Blood Count 3.21 M/uL (4.20-5.40); White Blood Count 4.34 K/ul (4.8-10.8)
--- NOTE | 2022-09-07 08:22 | Orthopedic Consultation ---
Date of Consultation September 07, 2022 Assessment & Plan (1) Chronic back pain greater than 3 months duration: Assessment chronic persistent back pain with spondylolysis spondylolisthesis L5- S1 and right greater than left neuroforaminal stenosis. Plan patient predominately has lumbosacral back pain. I explained her that there is significant multiple medical issues which would prohibit her from having any invasive procedures are institution. She is quite adamant that she would like to go to [place] if surgery were to be entertained. This point have nothing to offer the patient and she should arrange for follow-up at a tertiary care center. History of Present Illness Reason for Consultation: Lumbosacral back pain Attending Physician: Juma Couch MD History of Present Illness This is a 61-year-old female presents with multiple medical issues and chronic persistent back pain. She states the pain has been present for over 20 years. She is undergone various courses of pain management and medical management. She denies any surgical invention. She does have progressive peripheral neuropathy as well. She denies any gross motor deficits. Allergies Allergy/AdvReac Type Severity Reaction Status Date / Time ciprofloxacin Allergy Mild ITCHING Verified 09/05/22 23:06 amoxicillin [From Augmentin] Allergy Unknown Unknown Verified 05/13/21 11:05 clavulanic acid Allergy Unknown Unknown Verified 05/13/21 11:05 [From Augmentin] gemfibrozil Allergy Unknown Unknown Verified 05/13/21 11:05 prednisone Allergy Unknown Unknown Verified 05/13/21 11:05 Home Medications Medication Instructions Recorded Confirmed Type conjugated estrogens 0.625 mg 0.625 mg PO BID 08/14/19 09/05/22 History tablet (Premarin) cyclobenzaprine 10 mg tablet 10 mg PO AMHS 08/14/19 09/05/22 History duloxetine 60 mg capsule,delayed 60 mg PO QAM 08/14/19 09/05/22 History release ferrous sulfate 325 mg (65 mg 325 mg PO Q2D 08/14/19 09/05/22 History iron) tablet gabapentin 400 mg capsule 800 mg PO AMHS 08/14/19 09/05/22 History Oxygen Home #1 ea 02/08/21 09/05/22 Rx Portable Oxygen #1 ea 02/09/21 09/05/22 Rx acetaminophen 500 mg tablet 500 mg PO Q6H PRN Pain 05/13/21 09/05/22 History folic acid 1 mg tablet 1 mg PO QAM 09/05/22 09/05/22 History Patient History Medical History (Updated 09/07/22 @ 08:21 by William Gama, ) Chronic obstructive pulmonary disease, unspecified Dental disorder Ecchymosis Essential hypertriglyceridemia Fibromyalgia History of fibromyalgia ITP (idiopathic thrombocytopenic purpura) Need for hepatitis C screening test Pain syndrome, chronic Peripheral neuropathy Person who has undergone gender reassignment surgery Sepsis (03/12/14) Social History Smoking Status: Current every day smoker Tobacco Type: Cigarettes Hx Alcohol Use: No Hx Substance Use: No Preferred Language: Croatian Beliefs That Will Affect Care: Spiritual Current Living Situation: Alone Other Information That Helps Us Care for You: No Feels Safe at Home: Yes Safety Concerns: Feels Safe At This Time Physical Exam Physical Exam: On exam the patient is in no acute distress. There is regional strength testing lower extremities. With marked loss of sensation to the the bilateral feet. Results & Data Vital Signs (Past 12 Hours) Vital Signs Temp Pulse Pulse Resp BP Pulse Ox O2 Del Method 09/07/22 07:43 65 09/07/22 07:34 36.5 C 76 18 107/70 98 Nasal Cannula 09/07/22 00:00 36.8 C 79 20 121/78 94 Nasal Cannula 09/06/22 23:38 74 09/06/22 23:00 76 09/06/22 22:28 36.8 C 79 18 121/78 95 Nasal Cannula O2 Flow Rate 09/07/22 07:43 09/07/22 07:34 4 09/07/22 00:00 4 09/06/22 23:38 09/06/22 23:00 09/06/22 22:28 4
[2022-09-07] MEDS ORDERED: LIDOCAINE 5% 1 PATCH TD SCH (09:00)
[2022-09-07] MEDS ORDERED: BETAMETHASONE DIP AUG (DIPROLENE) 0.05% CR 15 GM TUBE EXT SCH (09:00)
[2022-09-07] MEDS: oxyCODONE HCL IR 5 MG TAB (IMMEDIATE RELEASE) PO PRN (09:07)
[2022-09-07] MEDS: LIDOCAINE 5% 1 PATCH TD SCH (09:09)
[2022-09-07] MEDS: NAPHAZOLIN/PHENIRAMIN OPH SOLN 75 DROPS/5 ML BTL OPL SCH (09:10)
[2022-09-07] MEDS: DOCUSATE SODIUM/SENNA 50/8.6MG TAB PO SCH (09:11)
[2022-09-07] MEDS: ESTROGENS, CONJUGATED 0.625 MG TAB PO SCH (09:11)
[2022-09-07] MEDS: FOLIC ACID 1 MG TAB PO SCH (09:11)
[2022-09-07] MEDS: NEOMYCIN/POLYMYX/HYDROCORT OT SOLN 10 ML BTL OTB SCH (09:12)
[2022-09-07] MEDS: PANTOprazole 40 MG in SYRINGE 0 ML IV SCH (09:13)
[2022-09-07] MEDS: NICOTINE 21 MG/24 HR TDSY TD SCH (11:08)
--- NOTE | 2022-09-07 14:53 | Discharge Summary ---
Date of Service September 07, 2022 Admission HPI Per Admitting Provider History obtained from patient and records. 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 Last confinement September 2017 for COPD exacerbation. Patient noted worsening left low back pain with leg radiation and shortness of breath mostly on exertion the last 2 weeks. No unusual cough symptoms. Chest pain from shortness of breath as per patient. No recent trauma, no fever, no chills. No incontinence. Patient constipated. Left leg feels numb. Achy headache symptoms. Left eye with 'gunk' as per patient. Both ears itching and ringing. Itchy lesions on the right arm and palms. Above problems worsening over the last few months. Belly discomfort from being bloated.. Legs more swollen than usual. Inability to shower at home from illness. Patient unable to get to [facility] asian studies professor office for Romiplostim infusion and other specialists due to illness and lack of transportation. Patient called asian studies professor who recommended ER evaluation. At the ER, 2 units of pheresed platelets transfused. 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, currently unemployed, lives alone Admission Exam Per Admitting Provider GENERAL: uncomfortable, irate, no respiratory distress SKIN: Pallor, petechiae noted over extremities, scaly plaques noted on both palms and right forearm, warm HEENT: Sparse hair, pale palpebral conjunctivae, no ptosis, moist buccal mucosa; erythematous EAC bilateral, intact TM bilaterally NECK : Supple, no tenderness CHEST : Decreased breath sounds, no tenderness HEART : RRR, no obvious murmurs ABDOMEN: Some distention, nontender BACK : Low back tenderness, negative straight leg raise test EXTREMITIES : Minimal LE swelling, no LE tenderness, no other conspicuous deformities noted NEUROLOGIC : Coherent, no facial asymmetry, RUE rest tremors, gait and stance not assessed Principal Diagnosis Severe thrombocytopenia due to Chronic ITP due to medical noncompliance, MGUS, Chronic hypoxic resp failure on NC, Acute on chronic back pain Discharge Exam General: Ambulating independently in the room, on NC Chest: Decreased breath sounds CVS: Regular rate and rhythm, normal heart sounds, no murmur Abdomen: Soft, non tender, not distended, normal bowel sounds Neuro: Awake, alert, oriented, non focal Extremities: Slight ecchymoses at site of scratches in arm and thigh Psych: irate, yelling, verbally combative prior to discharge however was appropriate and pleasant this morning and yesterday Discharge Data Allergies Allergy/AdvReac Type Severity Reaction Status Date / Time ciprofloxacin Allergy Mild ITCHING Verified 09/05/22 23:06 amoxicillin [From Augmentin] Allergy Unknown Unknown Verified 05/13/21 11:05 clavulanic acid Allergy Unknown Unknown Verified 05/13/21 11:05 [From Augmentin] gemfibrozil Allergy Unknown Unknown Verified 05/13/21 11:05 prednisone Allergy Unknown Unknown Verified 05/13/21 11:05 Consultations 09/06/22 00:02 ED Decision to Admit Stat 09/06/22 05:19 Consult Orthopedic Surgery Routine Ordered Studies 09/05/22 19:00 CT lumbar spine wo con Stat 09/06/22 01:25 CT Abd and Pelvis [CT abd pelvis IV con only] Stat CT angio chest PE protocol Stat CT head/brain wo con Stat US venous doppler LE BI Stat 09/06/22 05:14 MRI Lumbar Spine [MR lumbar spine wo con] Stat Laboratory Results WBC 4.34 K/ul (4.8-10.8) L 09/07/22 06:20 RBC 3.21 M/uL (4.20-5.40) L 09/07/22 06:20 Hgb 10.7 g/dl (12.0-16.0) L 09/07/22 06:20 Hct 31.8 % (37.0-47.0) L 09/07/22 06:20 MCV 99.1 fL (80.0-100.0) 09/07/22 06:20 MCH 33.3 pg (25.0-34.0) 09/07/22 06:20 MCHC 33.6 g/dL (32.0-36.0) 09/07/22 06:20 RDW Std Deviation 49.2 fL (36.4-46.3) H 09/07/22 06:20 RDW Coeff of Mela 13.6 % (11.5-14.5) 09/07/22 06:20 Plt Count 6 K/uL (130-400) L* D 09/07/22 06:20 Immature Gran % (Auto) 0.0 % 09/06/22 06:07 Neut % (Auto) 65.4 % 09/06/22 06:07 Lymph % (Auto) 24.3 % 09/06/22 06:07 [place] % (Auto) 6.9 % 09/06/22 06:07 Eos % (Auto) 2.7 % 09/06/22 06:07 Baso % (Auto) 0.7 % 09/06/22 06:07 Neut # (Auto) 2.93 K/uL (1.40-6.50) 09/06/22 06:07 Lymph # (Auto) 1.09 K/uL (1.2-3.4) L 09/06/22 06:07 [place] # (Auto) 0.31 K/uL (0.11-0.59) 09/06/22 06:07 Eos # (Auto) 0.12 K/uL (0-0.50) 09/06/22 06:07 Baso # (Auto) 0.03 K/uL (0-0.2) 09/06/22 06:07 Immature Gran # (Auto) 0.00 K/uL (0.01-0.20) L 09/06/22 06:07 Platelet Estimate Signific. Decreased (Normal) L 09/07/22 06:20 PT 10.5 Seconds (9.0-12.0) 09/05/22 19:57 INR 1.0 (0.9-1.1) 09/05/22 19:57 APTT 20.9 Seconds (21.0-31.0) L 09/05/22 19:57 PTT Ratio 0.7 09/05/22 19:57 D-Dimer Cancelled 09/06/22 00:12 Sodium 135 mmol/L (136-145) L 09/07/22 06:20 Potassium 4.1 mmol/L (3.5-5.1) 09/07/22 06:20 Chloride 103 mmol/L (98-107) 09/07/22 06:20 Carbon Dioxide 28 mmol/L (21-32) 09/07/22 06:20 Anion Gap 4 (3-11) 09/07/22 06:20 BUN 9 mg/dl (6-23) 09/07/22 06:20 Creatinine 0.66 mg/dl (0.6-1.2) 09/07/22 06:20 Est Cr Clr Drug Dosing 109.2 ml/min 09/07/22 06:20 Est GFR ( Amer) 112.1 ml/min 09/07/22 06:20 Est GFR (Non-Af Amer) 96.7 ml/min 09/07/22 06:20 BUN/Creatinine Ratio 13.6 (10-20) 09/07/22 06:20 Glucose 119 mg/dl (70-99(Fasting)) H 09/07/22 06:20 Lactate 1.2 mmol/L (0.4-2.0) 09/06/22 06:07 Calcium 8.7 mg/dl (8.6-10.3) 09/07/22 06:20 Magnesium 1.9 mg/dl (1.7-2.4) 09/05/22 19:57 Total Bilirubin 0.8 mg/dl (0.2-1.0) 09/05/22 19:57 AST 17 U/L (13-39) 09/05/22 19:57 ALT 21 U/L (7-52) 09/05/22 19:57 Alkaline Phosphatase 80 U/L (34-104) 09/05/22 19:57 Troponin I High Sens 2.5 pg/ml (0-14) 09/05/22 19:57 Total Protein 8.6 gm/dl (6.0-8.3) H 09/05/22 19:57 Albumin 3.5 gm/dl (3.4-5.0) 09/05/22 19:57 Globulin 5.1 gm/dl (2.5-4.0) H 09/05/22 19:57 Albumin/Globulin Ratio 0.7 (0.9-2) L 09/05/22 19:57 Lipase 13 U/L (11-82) 09/05/22 19:57 TSH 2.523 uIu/ml (0.300-4.500) 09/05/22 20:03 Urine Color Yellow 05/31/23 21:41 Urine Appearance Clear (Clear) 09/06/22 21:41 Urine pH 7.0 (4.5-7.5) 09/06/22 21:41 Ur Specific [place] 1.016 (1.000-1.030) 09/06/22 21:41 Urine Protein Negative (Negative) 09/06/22 21:41 Urine Glucose (UA) Negative (Negative) 09/06/22 21:41 Urine Ketones Negative (Negative) 09/06/22 21:41 Urine Blood Trace (Negative) H 09/06/22 21:41 Urine Nitrite Negative (Negative) 09/06/22 21:41 Urine Bilirubin Negative (Negative) 09/06/22 21:41 Urine Urobilinogen Negative (Negative) 09/06/22 21:41 Ur Leukocyte Esterase 1+ (Negative) H 09/06/22 21:41 Urine WBC (Auto) 1-5 /hpf (0-5) 09/06/22 21:41 Urine RBC (Auto) 0-4 /hpf (0-4) 09/06/22 21:41 U Hyaline Cast (Auto) 0 /lpf (0-5) 09/06/22 21:41 U Epithel Cells (Auto) 5-10 /lpf (0-5) H 09/06/22 21:41 Urine Bacteria (Auto) Negative (Negative) 09/06/22 21:41 Lyme Disease IgG Ab Negative (Negative) 09/05/22 20:03 Lyme Disease IgM Ab Negative (Negative) 09/05/22 20:03 SARS-CoV-2 (PCR) NEGATIVE (Negative) 09/05/22 19:44 Influenza Type A (PCR) Negative (Neg) 09/05/22 19:44 Influenza Type B (PCR) Negative (Neg) 09/05/22 19:44 RSV (RT-PCR) Negative (Neg) 09/05/22 19:44 Blood Type A Positive 09/05/22 19:57 Blood Type Recheck A Positive 09/05/22 23:45 Antibody Screen NEGATIVE 09/05/22 19:57 Impressions Chest X-Ray 09/05/22 19:00 XR chest 1V portable CLINICAL HISTORY: Chest pain, SOB TECHNIQUE: Single frontal radiograph of the chest was obtained. Comparison: Comparison is made to chest radiograph 03/25/2022 FINDINGS: No lines and tubes are seen. The cardiomediastinal silhouette is normal. The lungs are clear. No evidence of pleural effusion or pneumothorax. IMPRESSION: No acute chest disease. ACT 112: Negative or not required by law. Electronically signed by: Eugenio Galo M.D. 09/06/2022 8:[address] 09/05/22 19:00 Exam(s): CT L SPINE EXAM: CT Lumbar Spine Without Intravenous Contrast CLINICAL HISTORY: Reason for exam: Back pain. TECHNIQUE: Axial computed tomography images of the lumbar spine without intravenous contrast. Automated exposure control was utilized for the study. A dose lowering technique was utilized adhering to the principles of ALARA. COMPARISON: CT abdomen and pelvis 05/13/2021. PET/CT 09/04/2018. FINDINGS: Vertebrae: Chronic bilateral pars defects of L5 with minimal grade 1 spondylolisthesis of L5 on S1. There is associated severe right and moderate left foraminal narrowing. No acute fracture. Discs/spinal canal/neural foramina: Mild degenerative disc disease and facet arthrosis seen in the lumbar spine. No high-grade spinal canal stenosis. Right central/subarticular disc protrusion at L3-L4. Soft tissues: Unremarkable. Vasculature: Atherosclerotic calcification in the abdominal aorta and branches. IMPRESSION: 1. No acute fracture or traumatic malalignment of the lumbar spine. 2. Chronic pars defects of L5 with grade 1 spondylolisthesis of L5 on S1 and associated degenerative change resulting in severe right and moderate left foraminal narrowing at L5-S1. 3. Right central/subarticular disc protrusion at L3-L4. Recommend correlation for symptoms. Consider evaluation with MRI. 4. Otherwise, mild degenerative change in the lumbar spine. Electronically signed by: Yehuda March MD 09/05/22 23:31 PM Abdomen/Pelvis CT 09/06/22 01:25 Exam(s): CT ABDOMEN + PELVIS With Contrast IV Amt: 113 ML OPTIRAY 320 EXAM: CT Abdomen and Pelvis With Intravenous Contrast CLINICAL HISTORY: Abdominal discomfort. TECHNIQUE: Axial computed tomography images of the abdomen and pelvis with intravenous contrast. CTDI is 22.57 mGy and DLP is 1996.21 mGy-cm. Automated exposure control was utilized for the study. A dose lowering technique was utilized adhering to the principles of ALARA. CONTRAST: Patient received 113 ML OPTIRAY 320 of IV contrast COMPARISON: No relevant prior studies available. FINDINGS: Lung bases: Emphysema. ABDOMEN: Liver: Unremarkable. No mass. Gallbladder and bile ducts: Cholecystectomy. No ductal dilation. Pancreas: Unremarkable. No mass. No ductal dilation. Spleen: Unremarkable. No splenomegaly. Adrenals: Unremarkable. No mass. Kidneys and ureters: Unremarkable. No solid mass. No hydronephrosis. Stomach and bowel: Unremarkable. No obstruction. No mucosal thickening. PELVIS: Appendix: No findings to suggest acute appendicitis. Bladder: Unremarkable. No mass. Reproductive: Unremarkable as visualized. ABDOMEN and PELVIS: Intraperitoneal space: Unremarkable. No free air. No significant fluid collection. Bones/joints: Degenerative changes of the spine. No acute fracture. No dislocation. Soft tissues: Unremarkable. Vasculature: Mild atherosclerosis. No abdominal aortic aneurysm. Lymph nodes: Unremarkable. No enlarged lymph nodes. IMPRESSION: 1. No acute finding. 2. Emphysema. Electronically signed by: Daja Gray MD 09/06/22 04:54 AM Chest CTA 09/06/22 01:25 Exam(s): CTA CHEST IV Amt: 113 ML OPTIRAY 320 EXAM: CT Angiography Chest With Intravenous Contrast CLINICAL HISTORY: Chest pain. TECHNIQUE: Axial computed tomographic angiography images of the chest with intravenous contrast. CTDI is 22.57 mGy and DLP is 1996.21 mGy-cm. Automated exposure control was utilized for the study. A dose lowering technique was utilized adhering to the principles of ALARA. MIP reconstructed images were created and reviewed. COMPARISON: No relevant prior studies available. FINDINGS: Pulmonary arteries: Unremarkable. No pulmonary embolus. Aorta: No acute findings. No thoracic aortic aneurysm. Lungs: Marked emphysema. No mass. Pleural space: Unremarkable. No significant effusion. No pneumothorax. Heart: Unremarkable. No cardiomegaly. No significant pericardial effusion. No evidence of RV dysfunction. Bones/joints: There are degenerative changes of the spine. No fracture. No dislocation. Soft tissues: Bilateral breast prosthesis are present. Lymph nodes: Unremarkable. No enlarged lymph nodes. IMPRESSION: 1. No pulmonary embolus. 2. Marked emphysema. Electronically signed by: Daja Gray MD 09/06/22 04:[address] 09/06/22 01:25 Exam(s): CT HEAD Without Contrast EXAM: CT Head Without Intravenous Contrast CLINICAL HISTORY: Headache. TECHNIQUE: Axial computed tomography images of the head/brain without intravenous contrast. CTDI is 22.57 mGy and DLP is 1996.21 mGy-cm. Automated exposure control was utilized for the study. A dose lowering technique was utilized adhering to the principles of ALARA. COMPARISON: CT head 03/15/2022 FINDINGS: Brain: No intracranial hemorrhage, mass-effect or midline shift. No abnormal extra axial fluid. No evidence of acute infarct. Mild periventricular white matter hypodensities are most consistent with chronic microangiopathy. Ventricles: Unremarkable. No ventriculomegaly. Bones/joints: Unremarkable. No acute fracture. Soft tissues: Unremarkable. Sinuses: Unremarkable as visualized. No acute sinusitis. Mastoid air cells: Unremarkable as visualized. No mastoid effusion. IMPRESSION: No acute intracranial finding. Electronically signed by: Daja Gray MD 09/06/22 05:06 AM Venous Doppler Study 09/06/22 01:25 ULTRASOUND BILATERAL LOWER EXTREMITY VENOUS CLINICAL HISTORY: Lower extremity edema. COMPARISON STUDY: No priors TECHNIQUE: Real-time, grayscale, and color Doppler sonography of the deep veins of the right and left lower extremity was performed from the inguinal crease to the calf. Compression and augmentation were utilized. FINDINGS: There is no sonographic evidence of deep venous thrombosis identified in the right or left lower extremity. The common femoral, superficial femoral, and popliteal veins are patent and normally compressible bilaterally. The greater saphenous vein and the profunda femoris vein at the junction with the common femoral vein are clear in both legs. The visualized calf veins are patent bilaterally. IMPRESSION: There is no sonographic evidence of deep venous thrombosis identified in the right or left lower extremity. ACT 112: Negative or not required by law. Electronically signed by: Nolan Polo M.D. 09/06/2022 9:44 AM Lumbar Spine MRI 09/06/22 05:14 MR lumbar spine wo con CLINICAL HISTORY: worsening back pain TECHNIQUE: Multiplanar sequences through the lumbar spine were obtained, without intravenous contrast. Comparison: Comparison is made to lumbar spine radiograph 09/07/2022 FINDINGS: The alignment is anatomical. L1-L2: No significant abnormality. L2-L3: Broad base posterior disc bulge is seen without significant canal or neuroforaminal stenosis. L3-L4: Right greater than left posterior disc bulge is seen with moderate right neural foraminal stenosis. L4-L5: Broad-based posterior disc bulge is seen. L5-S1: Facet arthropathy results in mild bilateral neuroforaminal stenosis. The spinal ligaments are intact, without evidence of disruption or abnormal signal intensity. The spinal cord is normal in signal intensity and there is no evidence of cord contusion. There is no evidence of an extradural, intradural, extramedullary or intramedullary lesion. Heterogeneity of the lumbar spine is compatible with history of treated multiple myeloma. IMPRESSION: Multilevel degenerative changes are seen with up to moderate right and mild left neuroforaminal stenosis. No significant canal stenosis is seen. Posttreatment changes of multiple myeloma noted. ACT 112: Negative or not required by law. Electronically signed by: Eugenio Galo M.D. 09/06/2022 9:27 AM Hospital Course (1) Thrombocytopenia: (2) Multiple myeloma: (3) Chronic back pain greater than 3 months duration: (4) Peripheral neuropathy: (5) Hypoxemia: Plan Patient LEFT AMA. 61 year old transgender male->female with medical problems as listed above presented to the ED with multiple medical complaints as stated in HPI above. She has chronic ITP and on Nplate which she is supposed to get every week at Dr Gutierrez's office but she had not received for past 3 weeks due to having no transportation to keep the appointment. She also complained of acute on chronic LBP along with SOB and fatigue. She was found to have Platelet count of 4 on admission and was transfused 2 U Plts but Plt was still at 6 and dropped to 3. Discussed with her oncologist Dr Gutierrez who recommend Nplate which was not in our pharmacy. He recommended high dose decadron and IVIG to see response. She received 1 dose and her Plt was still at 6. Plan was to continue IVIG and decadron and secure Nplate for her through pharmacy request as per Dr Gutierrez's recommendation. Patient was very pleasant in the morning during my encounter however, during the later visit as per RN, she was irritated and dissatisfied by the care she received in the hospital since coming to ED. She stated she called ambulance at 6pm and was in the emergency bed hold for 28 hours before getting a proper bed on the floors. Also, she had to wait till noon of next day from the time of ED presentation to get the food and the ED menu and food was suboptima and she did not deserve to be treated like that. She states she was 'starved to '. Also she was dissatisfied why we were not able to get her Nplate from the cancer clinic next to the hospital or why she can not just go there and get it. She wanted transfer to [facility] for further medical care. I spoke to Dr Cruz (hospitalist) and Dr Newell (hematologis) from [facility] about potential transfer but they declined stating no medical necessity at this point and recommended management here with Jerson rosales. I spoke with her after that about the plan to continue IVIG, decadron and secure Nplate by requesting from pharmacy. She asked how long it is going to take to get Nplate 2 hrs, 24 hrs or next week or so. When I explained it all depends on when the pharmacy can secure for her and I do not have an exact answer at this point, she became very irritable, started yelling and instantly dismissed from her care and asked me to get out. Any attempt to pacify the situation or calm him down only irritated him and aggravated the situation and I had to step out. Soon after, I was told by RN that patient walked out of the room and left AMA but did not sign any papers. I did let the patient advocate and CM know regarding the situation but patient had already walked out. Dr Gutierrez was made aware of the situation for him to follow up on the patient for scheduling office visit for Nplate injection which seems to be the one that works for her. Regarding her other issues, her acute on chronic back is due to spondylosis and spondylolisthesis L5-S1 with some neuroforaminal stenosis- she was seen by Dr Gama this admission- no surgical intervention as of now and recommended her to follow up at a tertiary center given her multiple medical issues however, her pain seems controlled at this point. Her SOB/hypoxia seems to be at baseline. She has been ambulating independently in the room without any issues. She declined any shortness of breath at rest but only with activities but she does have home oxygen. She does not have any active bleeding going on. She has been awake alert with stable non focal neuro exam throughout the stay. Total Time Total Time Spent Total Time Spent (In Minutes): 75 Discharge Plan Discharge Items Patient Disposition: Against Medical Advice Reason For Visit: SOB, THROMBOCYTOPENIA Activity: Resume your previous activity Non-emergency contact: Primary Care Provider and Oncologist Follow-up/Referrals: Joyce Romo, DO [Primary Care Provider] - Pending Studies at Discharge: No Stand-Alone Forms: [facility], Smoking Cessation Medications and DC Order Prescriptions: Continued (DME) Oxygen Home Liters Per Minute See Rx Instructions .Route Qty: 1 0RF Rx Instructions: 2 LPM with activity and nightly (DME) Portable Oxygen Misc See Rx Instructions .Route Qty: 1 0RF Rx Instructions: POC; 2LPM via nasal cannula with exertion and at night cyclobenzaprine 10 mg tablet 10 mg PO [facility] gabapentin 400 mg capsule 800 mg PO [facility] ferrous sulfate 325 mg (65 mg iron) tablet 325 mg PO Q2D Premarin 0.625 mg tablet 0.625 mg PO BID duloxetine 60 mg capsule,delayed release(DR/EC) 60 mg PO QAM acetaminophen 500 mg Tablet 500 mg PO Q6H PRN (Reason: Pain) folic acid 1 mg tablet 1 mg PO QAM Discharge Orders: Left Against Medical Advice (Routine); Ordered 09/07/22 Ordered By: Juma Couch Admission Data Admit Date/Time: 09/06/22 05:12 Attending Provider: Juma Couch Admit Provider: Jamal Mejia Primary Care Provider: Joyce Romo Other Providers: Jamal Mejia ; William Gama
== END 2022-09-07 14:57 | disposition left against medical advice (07) | DRG 813 ==
LOC: ED 18:40 → EDINP 09-06 05:12 → 2W 09-06 06:07